=== PATIENT | female | born 1950 | race Caucasian/White ===

== ENCOUNTER → 2016-05-08 | Outpatient (CLI) | payer MEDICARE, OTHER ==
[~2016-05-08] MED LIST: ANAS1TAB3 PO; ASCO500T2 PO; ASPI-253 PO; CALC600T PO; CHOL10003 PO; ESOM40CA PO; FERR325T31 PO; HYDR-2666 PO; LOSA50TA6 PO; SIMV20TA3 PO; UBID100C PO; VALS320T2 PO; VITA1TAB35 PO
--- NOTE | 2016-05-08 13:52 | KCIC ---
Bilateral digital diagnostic mammograms with CAD: HISTORY COMPARISON Comparison is made to previous studies dated back to 11/18/2013. FINDINGS Breast density category B. The skin and nipples show no abnormalities. No abnormal lymph nodes are seen in the axilla. The breast parenchyma shows scattered fibroglandular density. There is a residual architectural distortion and seroma in the 12 o'clock position of the left breast post lumpectomy. There is residual architectural distortion in the 12 o'clock B position of the right breast post lumpectomy. There are no new dominant masses, suspicious calcifications or architectural distortions. Benign appearing calcifications are present IMPRESSION Postop changes present bilaterally. No evidence of new or recurrent malignancy. Recommend routine mammographic followup. This study was interpreted with the benefit of Computerized Aided Detection (CAD). Mammography is not 100% sensitive in detecting breast cancer. Therefore, a self breast exam and a clinical breast exam are very important. A negative mammogram does not negate a clinically suspicious finding and should not result in a delay in biopsying a clinically suspicious abnormality. BI-RADS category 2. Benign. This patient's information has been entered into a reminder system for the patient to be notified with the results of this examination and a target date for her next mammograms. Electronically signed by: Prema Braden MD (May 08, 2016 13:50:56)
== END | disposition home or self-care (01) ==
LOC: KCIC MAMMO 12:38
PROVIDERS: ATTEND Internal Medicine Hematology & Oncology
DX: R92.8 Other abnormal and inconclusive findings on diagnostic imaging of breast (principal); Z85.3 Personal history of malignant neoplasm of breast
CPT/HCPCS: 77051; G0204

== ENCOUNTER → 2016-12-20 | Outpatient (CLI) | payer MEDICARE, OTHER ==
[~2016-12-20] MED LIST changes: +FERR-36 PO; -FERR325T31 PO; -HYDR-2666 PO; +HYDR-2758 PO; +HYDR25TA9 PO; +PROAIR HFA8.5 GM INH
--- NOTE | 2016-12-20 12:37 | RAD ---
Radionuclide bone scan, 12/20/2016: History: Breast cancer Whole body imaging was performed following IV injection of 25 mCi of technetium 99 in MDP. No previous bone scan is available at this time for comparison purposes. The following findings are delineated: 1. There is slightly increased activity along the posterolateral aspect of approximately the eighth rib on the left. This is a nonspecific appearance which may be posttraumatic. A solitary bony metastasis cannot be entirely excluded. 2. Mild scattered arthritic changes are seen. 3. Activity of the radionuclide about the skeleton major joints is otherwise symmetric. There is no convincing evidence of osseous metastatic disease.
== END | disposition home or self-care (01) ==
LOC: NM 08:10
PROVIDERS: ATTEND Internal Medicine Hematology & Oncology
DX: C50.111 Malignant neoplasm of central portion of right female breast (principal); C50.112 Malignant neoplasm of central portion of left female breast; Z17.0 Estrogen receptor positive status [ER+]
CPT/HCPCS: 78306; 96374; A9537

== ENCOUNTER → 2017-06-06 | Outpatient (CLI) | payer MEDICARE, OTHER | END | disposition home or self-care (01) | LOC: KCIC MAMMO 12:27 | DX: R92.8 Other abnormal and inconclusive findings on diagnostic imaging of breast (principal); Z85.3 Personal history of malignant neoplasm of breast; Z92.3 Personal history of irradiation; Z98.890 Other specified postprocedural states | CPT/HCPCS: 77066 ==

== ENCOUNTER → 2017-10-07 | Outpatient (CLI) | payer MEDICARE, OTHER ==
[2017-10-07] MEDS: IOHEXOL 240 MG/ML 50ML VIAL. PO (09:29)
[2017-10-07] MEDS: IOHEXOL 300 MG/ML 100ML VIAL. IV (09:32)
== END | disposition home or self-care (01) ==
LOC: CT 07:52
DX: K44.9 Diaphragmatic hernia without obstruction or gangrene (principal); K82.8 Other specified diseases of gallbladder; Z85.3 Personal history of malignant neoplasm of breast
CPT/HCPCS: 71260; 74177; Q9966; Q9967

== ENCOUNTER → 2018-04-20 | Outpatient (CLI) | payer MEDICARE, OTHER ==
[~2018-04-20] MED LIST changes: +ALPR0.25 PO; -ANAS1TAB3 PO; +ANAS1TAB47 PO; +HYDR-2145 PO; -HYDR-2758 PO; +HYDR-2761 PO; +HYDR12.58 PO; -HYDR25TA9 PO; +IOHEXOL 240 MG/ML 50ML VIAL. PO ONE; +IOHEXOL 300 MG/ML 100ML VIAL. IV ONE; +LOSA-73 PO; -LOSA50TA6 PO; +PANT20TA2 PO
--- NOTE | 2018-04-20 12:17 | RAD ---
CT CHEST ABD PELVIS W/CONTRAST Indication: LIVER LESION, BREAST CANCER
IV OMNI 300 75 MLS NAND PO OMNI 240 30 MLS
PREVIOUS Exposure: One or more of the following individualized dose reduction techniques were utilized for this examination: 1. Automated exposure control 2. Adjustment of the mA and/or kV according to patient size 3. Use of iterative reconstruction technique. Comparison: October 07, 2017 Contrast: Intravenous contrast was given. Oral contrast was given. CHEST: Thoracic aorta: No evidence of aneurysm or dissection, note there is mild pulsatility artifact at the ascending aorta. Mild calcifications. Great vessel origins: Patent Pulmonary arteries: Main central arteries appear patent. Thyroid gland: Visualized aspect is unremarkable. Lymph nodes: Small mediastinal lymph nodes are identified, similar to the prior study. No evidence of pathologic lymph node enlargement. Heart: Coronary artery calcifications. Esophagus: Not distended. Note is made of a moderate size hiatal hernia containing stomach. Pleural spaces: No significant effusion Lungs: Mild increased markings are seen in both lungs, particularly in the lung bases, and appears similar to the prior study calcified nodule right lung base is stable. Compatible with a granuloma. Trachea and central airways: Patent Spine: Mild anterior wedging of a thoracic vertebral body is unchanged. Degenerative changes of the lower cervical region are again seen. Bones: No significant bone destruction. Small lesion in the deep left breast tissue, measures fluid density, similar in appearance as the prior exam, and unchanged in size, 2.6 cm long axis. Impression: 1. Small lesion in the deep left breast tissue is unchanged. 2. No new abnormality or significant change in the chest. ABDOMEN PELVIS: Liver: Hypodense lesion in the liver measures 2.7 cm diameter, not increased since prior study, slightly heterogeneous morphology, no significant change. No new lesion. Spleen: Unremarkable Pancreas: Unremarkable Adrenals: No evidence of mass. Kidneys: No obvious mass. Urinary tracts: No hydronephrosis. Gallbladder: No calcified stone Lymph nodes: No significant enlargement Vessels: Mildly calcified, no evidence of an aneurysm. GI tract: Moderate hiatal hernia again identified. No bowel obstruction. No evidence of acute colitis. Appendix is normal. Reproductive organs:No evidence of mass. Urinary bladder: Unremarkable. Peritoneum: No evidence of pneumoperitoneum. No free fluid. Abdominal wall:Unremarkable Spine: Degenerative spondylosis appears similar Bones: No destructive process. External Soft Tissue: No acute findings. Impression: 1. Small liver lesion is stable since prior exam. 2. Moderate hiatal hernia again identified. Electronically signed by: Zane Carter MD (04/20/2018 12:13 PM) [email or web address]
== END | disposition home or self-care (01) ==
LOC: CT 08:47
PROVIDERS: ATTEND Internal Medicine Hematology & Oncology
DX: K76.89 Other specified diseases of liver (principal); K44.9 Diaphragmatic hernia without obstruction or gangrene; I25.10 Atherosclerotic heart disease of native coronary artery without angina pectoris; R59.0 Localized enlarged lymph nodes; Z85.3 Personal history of malignant neoplasm of breast
CPT/HCPCS: 71260; 74177; Q9966; Q9967

== ENCOUNTER → 2018-06-08 | Outpatient (CLI) | payer MEDICARE, OTHER ==
[~2018-06-08] MED LIST changes: +ALBU2.5V8 INH; -IOHEXOL 240 MG/ML 50ML VIAL. PO ONE; -IOHEXOL 300 MG/ML 100ML VIAL. IV ONE; -PROAIR HFA8.5 GM INH
--- NOTE | 2018-06-08 17:15 | KCIC ---
Bilateral digital screening mammograms with 3-D tomosynthesis: Reason for examination: Routine screening. History of bilateral breast cancers with lumpectomies, chemotherapy and radiation therapy in 2013. Comparison is made to previous studies dated 06/06/2017 and 05/08/2016. Bilateral mammograms in CC and oblique projections were obtained with 2-D imaging and 3-D tomosynthesis imaging on a Siemens Inspiration unit and reviewed on the workstation. Interpretation was made with the benefit of CAD. The skin and nipples show no new abnormalities. No abnormal axillary lymph nodes are seen. The breast parenchyma shows scattered fatty and fibroglandular density. (Breast density: Category B.) There are postop changes bilaterally. There also benign calcifications again seen bilaterally. There are no new dominant masses, suspicious calcifications or architectural distortion. Impression: Postoperative changes bilaterally. No evidence of new or recurrent malignancy. Recommend routine screening. BI-RAD Category 2: Benign. "Our facility is accredited by the [employer] Mammography [employer]." This patient's information has been entered into a reminder system for the patient to be notified with the results of her examination and a target date for the next mammogram. Electronically signed by: Beryl Braden MD (06/08/2018 5:10 PM) [id number]
== END | disposition home or self-care (01) ==
LOC: KCIC MAMMO 09:27
PROVIDERS: ATTEND Internal Medicine Hematology & Oncology
DX: Z12.31 Encounter for screening mammogram for malignant neoplasm of breast (principal); Z85.3 Personal history of malignant neoplasm of breast
CPT/HCPCS: 77063; 77067

== ENCOUNTER → 2019-06-09 | Outpatient (CLI) | payer MEDICARE, OTHER ==
[~2019-06-09] MED LIST changes: +LOSA100T14 PO; +SIMV20TA18 PO; -SIMV20TA3 PO
--- NOTE | 2019-06-09 14:56 | KCIC ---
Bilateral digital screening mammograms with 3-D tomosynthesis: Reason for examination: Routine screening. History of bilateral breast cancers with lumpectomy, chemotherapy and radiation therapy. Comparison is made to previous studies dated 06/08/2018 and 06/06/2017. Bilateral mammograms in CC and oblique projections were obtained with 2-D imaging and 3-D tomosynthesis imaging on a Siemens Inspiration unit and reviewed on the workstation. Interpretation was made with the benefit of CAD. The skin and nipples show no abnormalities. No abnormal axillary lymph nodes are seen. The breast parenchyma is predominantly fatty. (Breast density: Category A.) There are postop changes with residual parenchymal changes evident bilaterally. This has not changed. There continue to be scattered benign calcifications seen. There are no new dominant masses, suspicious calcifications or architectural distortion. Impression: Postoperative changes bilaterally. No evidence of new or recurrent malignancy. Recommend routine screening. BI-RAD Category 2: Benign. "Our facility is accredited by the [employer] Mammography [employer]." This patient's information has been entered into a reminder system for the patient to be notified with the results of her examination and a target date for the next mammogram. Electronically signed by: Beryl Braden MD (06/09/2019 2:53 PM) [email or web address]
== END | disposition home or self-care (01) ==
LOC: KCIC MAMMO 09:11
PROVIDERS: ATTEND Internal Medicine Hematology & Oncology
DX: Z12.31 Encounter for screening mammogram for malignant neoplasm of breast (principal); Z92.3 Personal history of irradiation; Z92.21 Personal history of antineoplastic chemotherapy; Z85.3 Personal history of malignant neoplasm of breast
CPT/HCPCS: 77063; 77067

== ENCOUNTER → 2020-06-12 | Outpatient (CLI) | payer MEDICARE, OTHER ==
[~2020-06-12] MED LIST changes: -ASCO500T2 PO; +ASCO500T4 PO; -UBID100C PO; +UBID100C39 PO
--- NOTE | 2020-06-12 11:24 | KCIC ---
EXAM: Bilateral digital screening mammogram with tomosynthesis. HISTORY: 70-year-old female with a history of bilateral breast cancer, status post viral breast conse rvation therapy, presents for screening mammography. TECHNIQUE: Full-field digital craniocaudal and mediolateral oblique 2D and 3D tomosynthesis images of both breasts are obtained for evaluation. Computer aided detection was applied. COMPARISON: 06/09/2019 and 06/08/2018 BREAST PARENCHYMAL DENSITY: Level B - Scattered fibroglandular densities. FINDINGS: There is stable increased density with architectural distortion and benign indications with in the posterior 12:00 position of the left breast and 12:00 position of the right breast at mid to p osterior depth, consistent with lumpectomy beds. There is no new suspicious mass, calcification or di stortion within either breast. IMPRESSION: 1. Stable findings consistent with bilateral breast conservation therapy. 2. No new suspicious mammographic finding. 3. BI-RADS Category 2: Benign finding(s). RECOMMENDATION: Annual mammography is recommended. If your mammogram demonstrates that you have dense breast tissue, which could hide abnormalities, and if you have other risk factors for breast cancer that have been identified, you might benefit from s upplemental screening tests that may be suggested by your ordering physician. Dense breast tissue, i n and of itself, is a relatively common condition. This information is not provided to cause undue c oncern, but rather to raise your awareness and to promote discussion with your physician regarding th e presence of other risk factors, in addition to dense breast tissue. A report of your mammography re sults will be sent to you and your physician. You should contact your physician if you have any ques tions or concerns regarding this report. Mammography is a sensitive method for finding small breast cancers, but it does not detect them all a nd is not a substitute for careful clinical examination. A negative mammogram does not negate a clin ically suspicious finding and should not result in delay in biopsying a clinically suspicious abnorma lity. PQRS compliance statement - Patient information was entered into a reminder system with a target due date for the next mammogram. "Our facility is accredited by the [employer] Mammography [employer]." Electronically signed by: Regina Torres MD (06/12/2020 11:21 AM) [facility]
== END ==
LOC: KCIC MAMMO 09:41
PROVIDERS: ATTEND Internal Medicine Hematology & Oncology
DX: Z12.31 Encounter for screening mammogram for malignant neoplasm of breast (principal)
CPT/HCPCS: 77063; 77067

== ENCOUNTER → 2021-06-13 | Outpatient (CLI) | payer MEDICARE, OTHER ==
--- NOTE | 2021-06-13 11:14 | KCIC ---
Bilateral digital screening mammograms with 3-D tomosynthesis: Reason for examination: Routine screening. History of bilateral breast cancers with lumpectomy, chemo therapy and radiation therapy in 2013. Comparison is made to previous studies dated back to 05/19/2014. Bilateral mammograms in CC and oblique projections were obtained with 2-D imaging and 3-D tomosynthes is imaging on a Siemens Inspiration unit and reviewed on the workstation. Interpretation was made wit h the benefit of CAD. The skin and nipples show no acute abnormalities. No abnormal axillary lymph nodes are seen. The dennis st parenchyma shows scattered fatty and fibroglandular density. (Breast density: Category B.) There a re postop changes present bilaterally with residual architectural distortion and calcifications proba nayana reflecting fat necrosis. There are no new dominant masses, suspicious calcifications or e commerce architect ural distortion. Benign calcifications are present. Impression: Postoperative changes bilaterally. No evidence of new or recurrent malignancy. Recommend routine scre ening. BI-RAD Category 2: Benign. "Our facility is accredited by the [employer] Mammography [employer]." This patient's information has been entered into a reminder system for the patient to be notified wit h the results of her examination and a target date for the next mammogram. Electronically signed by: Beryl Braden MD (06/13/2021 11:12 AM) [email or web address]
== END ==
LOC: KCIC MAMMO 09:08
PROVIDERS: ATTEND Internal Medicine Hematology & Oncology
DX: Z12.31 Encounter for screening mammogram for malignant neoplasm of breast (principal)
CPT/HCPCS: 77063; 77067